=== PATIENT | female | born 1955 | race Caucasian/White ===

== ENCOUNTER → 2016-10-24 | Day surgery (SDC) | payer OTHER ==
[~2016-10-24] VITALS: Ht 160 cm; Wt 112.5 kg
[~2016-10-24] MED LIST: ALBUTEROL0.09 MG/A1 INH; PREDNISONE 20MG20 MG PO; ZITHROMAX250 MG PO
--- NOTE | 2016-10-24 10:30 | Operative Report ---
Operative/Inv Procedure Report Surgery Date: 10/24/16 Name of Procedure: D&c hysteroscopy Pre-Operative Diagnosis: Post menopausal bleeding Post-Operative Diagnosis: Postmenopausal bleeding Estimated Blood Loss: scant Surgeon/Stave Jointer: ABELINO BRIGHT,NEMO Patino Anesthesia: local monitored anesthesi Specimens: ecc,emc Complications: None Condition: Good Operative Indication: Postmenopausal bleeding Operative/Procedure Note Note: The patient was taken to the operating room placed in dorsal supine position in banana stirrups. After checking for adequacy of anesthesia patient was prepped and draped in usual sterile fashion. Vacuum was placed in the vagina the anterior lip of the cervix was grasped with a single-tooth tenaculum. The endocervical canal was dilated with Hanks dilators until a #16. Hysteroscope was passed passed into the endocervical canal visualization of the endometrium using sterile saline as a distention medium. A homogeneously thickened endometrium was noted no focal lesions. The's was followed by a sharp curettage of the endometrial canal and to pathology for examination. And a sharp curettage of the endocervical canal sent to pathology for examination is concluded the procedure the single-tooth tenaculum was removed hemostasis was excellent patient was awakened and moved to recovery room in good condition thank
== END ==
LOC: STS 01:48
DX: N85.02 Endometrial intraepithelial neoplasia [EIN] (principal); N95.0 Postmenopausal bleeding; E03.9 Hypothyroidism, unspecified
CPT/HCPCS: 88305; J2250